=== PATIENT | male | born 1970 | race African-American/Black ===

== ENCOUNTER 2021-11-21 18:52 | Emergency (ER) | payer OTHER ==
[2021-11-21 19:03] VITALS: BP 156/92; PULSE 91; RESP 18; TEMP 98.1; BMI 26.3
[2021-11-21 22:35] LABS: CALCIUM 9.2 mg/dL (8.5-10.1)
[2021-11-21 22:36] LABS: BLOOD UREA NITROGEN 17.4 mg/dL (7-18)
[2021-11-21 22:38] LABS: CREATININE 1.2 mg/dL (0.55-1.3)
[2021-11-21 22:40] LABS: BILIRUBIN,TOTAL 0.5 mg/dL (0.2-1); TOT PROT 7.2 g/dl (6.4-8.2)
[2021-11-21 22:50] LABS: BASO % 0.5 % (0-2.0); EOS % 0.8 % (0-4.5); HEMATOCRIT 44.8 % (35.4-49); LYMPH % 22.9 % (8-40); MCH 28.7 pg (25.7-33.7); MCHC 33.4 g/dl (32.0-35.9); MEAN PLT VOLUME 7.7 fl (7.5-11.1); MONO % 7.1 % (3.8-10.2); NEUT % 68.7 % (42.8-82.8); PLATELET COUNT 187 10^3/uL (134-434); RBC 5.21 M/mm3 (4.00-5.60); WHITE BLOOD COUNT 9.2 K/mm3 (4.0-10.0)
== END 2021-11-22 01:10 | disposition home or self-care (01) ==
LOC: JER 18:52
DX: R07.9 Chest pain, unspecified (principal)
CPT/HCPCS: 36415; 71046-TC-FY; 80053; 84132; 84443; 84484; 85025; 93005; 93010; 93308; 99284-25

== ENCOUNTER 2022-10-19 07:46 | Emergency (ER) | payer OTHER ==
[2022-10-19 07:57] VITALS: BMI 23.1
[2022-10-19] MEDS ORDERED: ASPIRIN 325 MG ENTERIC COATED TABLET (FP) PO ONE (08:19)
[2022-10-19] MEDS ORDERED: ASPIRIN 325 MG ENTERIC COATED TABLET (FP) ONE (08:55)
[2022-10-19 09:04] LABS: BASO % 0.6 % (0-2.0); EOS % 1.9 % (0-4.5); HEMATOCRIT 47.6 % (35.4-49); HEMOGLOBIN 15.8 GM/dL (11.7-16.9); LYMPH % 22.6 % (8-40); MCH 28.6 pg (25.7-33.7); MCHC 33.2 g/dl (32.0-35.9); MEAN CELL VOLUME 86.1 fl (80-96); MEAN PLT VOLUME 8.8 fl (7.5-11.1); MONO % 7.7 % (3.8-10.2); NEUT % 67.2 % (42.8-82.8); PLATELET COUNT 203 10^3/uL (134-434); RBC 5.53 M/mm3 (4.00-5.60); RDW 13.7 % (11.9-15.9); WHITE BLOOD COUNT 6.6 K/mm3 (4.0-10.0)
[2022-10-19 09:33] LABS: POTASSIUM 3.9 mmol/L (3.5-5.1)
[2022-10-19 09:35] LABS: CALCIUM 8.8 mg/dL (8.5-10.1)
[2022-10-19 09:36] LABS: ALBUMIN 3.7 g/dl (3.4-5.0); BLOOD UREA NITROGEN 14.9 mg/dL (7-18)
[2022-10-19 09:39] LABS: CREATININE 1.4 mg/dL (0.55-1.3)
[2022-10-19 09:40] LABS: BILIRUBIN,TOTAL 0.2 mg/dL (0.2-1); TOT PROT 6.9 g/dl (6.4-8.2)
[2022-10-19] MEDS ORDERED: amLODIPine BESYLATE 10 MG TABLET (FP) PO ONE (12:24)
[2022-10-19] MEDS ORDERED: LOSARTAN POTASSIUM 50 MG TABLET PO ONE (12:25)
[2022-10-19] MEDS ORDERED: LOSARTAN POTASSIUM 50 MG TABLET ONE (12:40)
[2022-10-19] MEDS ORDERED: amLODIPine BESYLATE 10 MG TABLET (FP) ONE (12:40)
[2022-10-19 14:45] VITALS: BP 162/95; PULSE 76; RESP 20; TEMP 98.2
== END 2022-10-19 14:51 | disposition home or self-care (01) ==
LOC: JER 07:46
DX: R06.02 Shortness of breath (principal)
CPT/HCPCS: 36415; 71045-TC-FY; 80053; 84484; 85025; 93005; 93010; 93306-TC; 99285-25

== ENCOUNTER 2022-10-20 01:30 | Emergency (ER) | payer OTHER ==
[2022-10-20 01:38] VITALS: BP 158/92; PULSE 73; RESP 18; TEMP 97.8; BMI 23.7
[2022-10-20] MEDS: ALBUTEROL SO4 2.5/IPRATROPIUM 0.5 INH SOL 3 ML VIAL.NEB. NEB SCH ×5 (03:18→04:04)
[2022-10-20] MEDS ORDERED: ALBUTEROL SO4 HFA INHALER IH ONE ×2 (04:37→04:39)
== END 2022-10-20 04:50 | disposition home or self-care (01) ==
LOC: JER 01:30
DX: R06.02 Shortness of breath (principal); R07.89 Other chest pain
CPT/HCPCS: 99283-25

== ENCOUNTER 2024-01-30 16:32 | Emergency (ER) | payer OTHER ==
[2024-01-30 16:37] VITALS: TEMP 97.6; BMI 25.6
[2024-01-30 17:36] VITALS: BP 154/93; PULSE 66; RESP 20
[2024-01-30 17:44] LABS: BASO % 0.7 % (0-2.0); EOS % 1.2 % (0-4.5); HEMATOCRIT 44.6 % (35.4-49); HEMOGLOBIN 14.7 GM/dL (11.7-16.9); LYMPH % 27.3 % (8-40); MCHC 32.9 g/dl (32.0-35.9); MEAN CELL VOLUME 84.9 fl (80-96); MEAN PLT VOLUME 7.7 fl (7.5-11.1); MONO % 6.8 % (3.8-10.2); PLATELET COUNT 224 10^3/uL (134-434); RBC 5.26 M/mm3 (4.00-5.60); RDW 14.4 % (11.9-15.9); WHITE BLOOD COUNT 7.6 K/mm3 (4.0-10.0)
[2024-01-30 17:47] LABS: EPI CELLS 11 /uL (0-25.1); HYALINE CASTS 0 /uL (0-3.1); PH,URINE 6.5 (5.0-8.0); URINE APPEARANCE CLEAR; URINE BACTERIA 16 /uL (0-1359); URINE BILIRUBIN NEGATIVE (NEGATIVE); URINE COLOR YELLOW; URINE GLUCOSE (UA) NEGATIVE (NEGATIVE); URINE KETONE NEGATIVE (NEGATIVE); URINE LEUK ESTERASE TRACE (NEGATIVE); URINE NITRITE NEGATIVE (NEGATIVE); URINE PROTEIN NEGATIVE (NEGATIVE); URINE RBC 4 /uL (0-23.9); URINE UROBILINOGEN 0.2 mg/dL (0.2-1.0); URINE WBC 23 /uL (0-25.8)
[2024-01-30 18:16] LABS: CALCIUM 9.3 mg/dL (8.5-10.1)
[2024-01-30 18:17] LABS: ALBUMIN 3.8 g/dl (3.4-5.0); BLOOD UREA NITROGEN 16.2 mg/dL (7-18); MAGNESIUM 2.1 mg/dL (1.8-2.4)
[2024-01-30 18:20] LABS: CREATININE 1.2 mg/dL (0.55-1.3)
[2024-01-30 18:22] LABS: BILIRUBIN,TOTAL 0.4 mg/dL (0.2-1)
== END 2024-01-30 18:27 | disposition home or self-care (01) ==
LOC: JER 16:32
DX: R79.9 Abnormal finding of blood chemistry, unspecified (principal); R20.0 Anesthesia of skin; R30.0 Dysuria
CPT/HCPCS: 36415; 80053; 81003; 83735; 85025; 87086; 99283-25